=== PATIENT | male | born 1950 | race Hispanic/Latino ===

== ENCOUNTER 2017-05-02 07:04 | Day surgery (SDC) | payer BC, MEDICARE ==
[2017-04-20 14:47] VITALS: BMI 32.0
[2017-05-02] MEDS ORDERED: Propofol 10 mg/ml Inj (20 ML) ONE (07:56)
[2017-05-02] MEDS ORDERED: Sodium Chloride 0.9% 250 ML IV STA (09:00)
[2017-05-02] MEDS ORDERED: Sodium Chloride 0.9% 1,000 ML IV SCH ×3 (09:00→09:15)
[2017-05-02 10:14] VITALS: BP 102/63; PULSE 78; RESP 19; TEMP 98.7; O2SAT 98
== END 2017-05-02 10:50 | disposition home or self-care (01) ==
LOC: ENDO 07:04
PROVIDERS: ATTEND Specialist
DX: K62.1 Rectal polyp (principal); K57.30 Diverticulosis of large intestine without perforation or abscess without bleeding; K64.8 Other hemorrhoids; I50.9 Heart failure, unspecified; I10 Essential (primary) hypertension; M19.90 Unspecified osteoarthritis, unspecified site; I48.91 Unspecified atrial fibrillation; I25.10 Atherosclerotic heart disease of native coronary artery without angina pectoris; Z12.11 Encounter for screening for malignant neoplasm of colon; Z80.0 Family history of malignant neoplasm of digestive organs
CPT/HCPCS: 45380; 88305; J2704; J7040 ×2

== ENCOUNTER 2018-02-07 00:34 | Inpatient (IN) | payer MEDICARE ==
[2018-02-07 00:34] VITALS: BMI 32.0
--- NOTE | 2018-02-07 00:53 | ED PDOC ---
Arrival/HPI - General Chief Complaint: Shortness Of Breath Time Seen by Provider: 02/07/18 00:36 Historian: Patient - History of Present Illness Narrative History of Present Illness (Text): 02/07/18 00:44 67 year old male, whose past medical history includes CHF, Hypertension, DJD, CAD, a-fib s/p cardiac ablation yesterday morning, presents to the emergency department complaining of shortness of breath 1 hour prior to arrival. Patient states he was fine before he went to sleep, but woke up having trouble breathing. He reports he had his 2nd Cardiac ablation for this a-fib yesterday morning. Patient is on Eliquis. The patient denies any fever, chills, chest pain, abdominal pain, nausea, vomiting, diarrhea, urinary symptoms, back pain, neck pain, headache, dizziness, or any other complaints. PMD: Dr. Marta Grayson Gambling Supervisor: Dr. Zarate Time/Duration: Prior to Arrival, 1 hour Symptom Onset: Sudden Symptom Course: Unchanged Activities at Onset: Sleeping Context: Home Past Medical History - Provider Review Nursing Documentation Reviewed: Yes - Infectious Disease Hx of Infectious Diseases: None - Cardiac Hx Cardiac Disorders: Yes Hx Atrial Fibrillation: Yes (ablation 02/06/18) Hx Pacemaker: No - Pulmonary Hx Respiratory Disorders: No - Neurological Hx Paralysis: No - Hematological/Oncological Hx Blood Transfusions: No Hx Blood Transfusion Reaction: No - Musculoskeletal/Rheumatological Hx Musculoskeletal Disorders: Yes - Psychiatric Hx Emotional Abuse: No Hx Physical Abuse: No Hx Substance Use: No - Anesthesia Hx Anesthesia Reactions: No Hx Malignant Hyperthermia: No - Suicidal Assessment Feels Threatened In Home Enviroment: No Family/Social History - Physician Review Nursing Documentation Reviewed: Yes Family/Social History: No Known Family HX Smoking Status: Never Smoked Hx Alcohol Use: Yes (WINE WITH DINNER) Hx Substance Use: No Allergies/Home Meds Allergies/Adverse Reactions: Allergies No Known Allergies Allergy (Verified 04/20/17 14:52) Home Medications: Home Meds Medication Instructions Recorded Confirmed Allopurinol [Zyloprim] 100 mg PO DAILY 04/20/17 02/07/18 Amlodipine-Benazepril 10-20 mg 10 mg PO DAILY 04/20/17 02/07/18 Apixaban [Eliquis] 5 mg PO BID 04/20/17 02/07/18 Aspirin [Aspirin Chewable] 81 mg PO DAILY 04/20/17 02/07/18 Atorvastatin [Lipitor] 40 mg PO DAILY 04/20/17 02/07/18 Finasteride [Proscar] 5 mg PO DAILY 04/20/17 02/07/18 Furosemide [Lasix] 40 mg PO DAILY 04/20/17 02/07/18 Metoprolol Tartrate [Lopressor] 100 mg PO BID 04/20/17 02/07/18 Spironolactone [Aldactone] 25 mg PO DAILY 04/20/17 02/07/18 OMEGA 3 1 gm PO BID 02/07/18 02/07/18 Ruxolitinib Phosphate [Jakafi] 10 mg PO BID 02/07/18 02/07/18 Review of Systems - Physician Review All systems were reviewed & negative as marked: Yes - Review of Systems Constitutional: absent: Fevers, Other (Chills) Respiratory: SOB Cardiovascular: absent: Chest Pain Gastrointestinal: absent: Abdominal Pain, Diarrhea, Nausea, Vomiting Genitourinary Male: absent: Dysuria, Frequency, Hematuria Musculoskeletal: absent: Back Pain, Neck Pain Neurological: absent: Headache, Dizziness Physical Exam Vital Signs Reviewed: Yes Temperature: Afebrile Blood Pressure: Normal Pulse: Regular Respiratory Rate: Normal Appearance: Positive for: Well-Appearing, Non-Toxic, Comfortable Pain Distress: None Mental Status: Positive for: Alert and Oriented X 3 - Systems Exam Head: Present: Atraumatic, Normocephalic Pupils: Present: PERRL Extroacular Muscles: Present: EOMI Conjunctiva: Present: Normal Mouth: Present: Moist Mucous Membranes Neck: Present: Normal Range of Motion Respiratory/Chest: Present: Rales. No: Respiratory Distress, Accessory Muscle Use Cardiovascular: Present: Regular Rate and Rhythm, Normal S1, S2. No: Murmurs Abdomen: No: Tenderness, Distention, Peritoneal Signs Back: Present: Normal Inspection Upper Extremity: Present: Normal Inspection. No: Cyanosis, Edema Lower Extremity: Present: Normal Inspection. No: Edema Neurological: Present: GCS=15, CN II-XII Intact, Speech Normal Skin: Present: Warm, Dry, Normal Color. No: Rashes Psychiatric: Present: Alert, Oriented x 3, Normal Insight, Normal Concentration Medical Decision Making ED Course and Treatment: 02/07/18 00:44 Impression: 67 year old male presents complaining of shortness of breath that began 2 hours prior to arrival. Patient had a cardiac ablation for a-fib yesterday morning. Plan: -- EKG -- Labs -- CXR -- Lasix, Tylenol -- Blood Culture -- Reassess and disposition Prior Visits: Notes and results from previous visits were reviewed. Progress Notes: 02/07/18 0);42 EKG shows NSR at 74 BPM. Interpreted by me 02/07/18 01:32 CXR Impression: As read by me, cardiomegaly with some mild CHF 02/07/18 02:[address] Haynes who is aware and agrees with the plan. Accepts patient into her service. - Lab Interpretations I have reviewed the lab results: Yes - RAD Interpretation Base Engineer: ED Physician - EKG Interpretation Interpreted by ED Physician: Yes Type: 12 lead EKG - Scribe Statement The provider has reviewed the documentation as recorded by the Scribe Luis M Banda Provider Scribe Attestation: All medical record entries made by the Scribe were at my direction and personally dictated by me. I have reviewed the chart and agree that the record accurately reflects my personal performance of the history, physical exam, medical decision making, and the department course for this patient. I have also personally directed, reviewed, and agree with the discharge instructions and disposition. Disposition/Present on Arrival - Present on Arrival Any Indicators Present on Arrival: No History of DVT/PE: No History of Uncontrolled Diabetes: No Urinary Catheter: No History of Decub. Ulcer: No History Surgical Site Infection Following: None - Disposition Have Diagnosis and Disposition been Completed?: Yes Diagnosis: Congestive heart failure (CHF) Disposition: HOSPITALIZED Disposition Time: 02:00 Condition: FAIR
[2018-02-07 01:18] LABS: BASO # 0.29 K/mm3 (0.0-2.0); BASO % 2.1 % (0.0-3.0); EOS # 0.3 (0.0-0.7); GRAN # 11.22 (1.4-6.5); HEMOGLOBIN 9.3 g/dL (14.0-18.0); LYMPH # 1.4 (1.2-3.4); LYMPH % 10.4 % (22.0-35.0); MEAN CELL VOLUME 98.6 fl (80.0-105.0); MEAN CORPUSCULAR HEMOGLOBIN 31.5 pg (25.0-35.0); MONO # 0.5 (0.1-0.6); MONO % 3.5 % (1.0-6.0); RED CELL DISTRIBUTION WIDTH 22.2 % (11.5-14.5)
[2018-02-07 01:26] LABS: ALB/GLOB RATIO 1.4 (1.1-1.8); ALBUMIN 4.4 g/dL (3.0-4.8); CALCIUM 9.3 mg/dL (8.4-10.5)
[2018-02-07 01:35] LABS: INR 1.65
[2018-02-07 01:41] LABS: TROPONIN I 0.64 ng/mL
[2018-02-07 05:42] LABS: RBC 2.95 10^6/uL (3.5-6.1); WHITE BLOOD COUNT 13.7 10^3/uL (4.5-11.0)
[2018-02-07 08:53] LABS: HDL CHOLESTEROL 17 mg/dL (29-60)
[2018-02-07 09:03] LABS: LDL CHOLESTEROL 44 mg/dL (0-129)
--- NOTE | 2018-02-07 09:20 | CARD ---
APPROVED REPORT Date of service: 02/07/2018 EKG Measurement Heart [id number] <Conclusion> Normal sinus rhythm Baseline artifact Probably normal ECG
--- NOTE | 2018-02-07 09:23 | RAD ---
Date of service: 02/07/2018 HISTORY: sob COMPARISON: No prior. FINDINGS: LUNGS: Infiltrate in the right lower lobe. Mild vascular congestion PLEURA: No significant pleural effusion identified, no pneumothorax apparent. CARDIOVASCULAR: No aortic atherosclerotic calcification present. Normal cardiac size. Mild vascular congestion OSSEOUS STRUCTURES: No significant abnormalities. VISUALIZED UPPER ABDOMEN: Normal. OTHER FINDINGS: None. IMPRESSION: Infiltrate in the right lower lobe. Mild vascular congestion
[2018-02-07 11:33] LABS: TROPONIN I 0.45 ng/mL
--- NOTE | 2018-02-07 13:42 | CARD ---
APPROVED REPORT Date of service: 02/07/2018 EXAM: Two-dimensional and M-mode echocardiogram with Doppler and color Doppler. INDICATION Dizziness and Vertigo Chest Pain 2D DIMENSIONS Left Atrium (2D)5.6 (1.6-4.0cm)IVSd1.2 (0.7-1.1cm) LVDd5.1 (3.9-5.9cm)PWd1.4 (0.7-1.1cm) LVDs3.5 (2.5-4.0cm)FS (%) 32.4 % LVEF (%)60.4 (>50%) M-Mode DIMENSIONS Aortic Root4.10 (2.2-3.7cm)Aortic Cusp Exc.1.60 (1.5-2.0cm) Aortic Valve AoV Peak Cuuxqutx205.0cm/sAoV VTI41.3cmAO Peak GR.15mmHg LVOT Peak Wgpzgzim506.0cm/sLVOT VTI24.50cmAO Mean GR.9mmHg Mitral Valve MV E Kyktcdin915.0cm/sMV A Hjqyoxta68.3cm/sE/A ratio2.9 TDI Lateral E' Peak V12.60cm/sMedial E' Peak V9.36cm/sE/Lateral E'11.8 E/Medial E'15.9 Pulmonary Valve PV Peak Osnbxeko16.5cm/sPV Peak Grad.3mmHg Tricuspid Valve TR Peak Pspyvwgl341ru/sRAP REKPGLSP99qkRxGB Peak Gr.75mmHg UQRV16zsFv LEFT VENTRICLE The left ventricle is normal size. There is borderline concentric left ventricular hypertrophy. The left ventricular function is normal.EF-55-60% There is mild hypokinesis in the basal inferior wall. Transmitral Doppler flow pattern is Grade II-pseudonormal filling dynamics. No left ventricle thrombus noted on this study. There is no ventricular septal defect visualized. There is no left ventricular aneurysm. There is no mass noted in the left ventricle. RIGHT VENTRICLE The right ventricle is moderately dilated. There is normal right ventricular wall thickness. Systolic function is moderately reduced. ATRIA The left atrium is moderately dilated. The right atrium is moderately dilated. The atrial septum is aneurysmal, with intermittent PFO from left to right shunt by color flow. AORTIC VALVE The aortic valve is calcified and displays decreased opening. There is trace aortic regurgitation. Aortic sclerosis VS mild . There is no aortic valvular vegetation. MITRAL VALVE The mitral valve is thickened but opens well. Mitral annular calcification is moderate. Mitral regurgitation is moderate to severe. There is no mitral valve stenosis. There is no evidence of mitral valve prolapse. TRICUSPID VALVE The tricuspid valve leaflets are thickened , but open well. There is moderate to severe tricuspid regurgitation.RVSP-85 mmof Hg There is severe pulmonary hypertension. There is no tricuspid valve stenosis. There is no tricuspid valve prolapse or vegetation. PULMONIC VALVE The pulmonary valve is normal in structure. trivial PI. There is no pulmonic valvular stenosis. GREAT VESSELS The aortic root is normal in size. The ascending aorta is normal in size. The pulmonary artery is normal. The IVC is normal in size and collapses >50% with inspiration. PERICARDIAL EFFUSION There is no pleural effusion. Trivial pericardial effusion. <Conclusion> The left ventricle is normal size. There is borderline concentric left ventricular hypertrophy. The left ventricular function is normal.EF-55-60%. Dilated RA/LA/RV. There is trace aortic regurgitation. Aortic sclerosis VS mild . Mitral regurgitation is moderate to severe. There is moderate to severe tricuspid regurgitation.RVSP-85 mmof Hg There is severe pulmonary hypertension. Trivial pericardial effusion. The IVC is normal in size and collapses >50% with inspiration. The atrial septum is aneurysmal, with intermittent PFO from left to right shunt by color flow.
--- NOTE | 2018-02-07 14:19 | HP ---
DATE OF EXAM: 02/07/2018 HISTORY OF PRESENT ILLNESS: The patient is a 67-year-old who came to emergency room because of increasing shortness of breath. The patient states he had ablation procedure done in [place], [place], day before yesterday for his chronic AFib. He was well for yesterday, but woke up with extreme shortness of breath, so he called ambulance and was brought to the emergency room with complaint of feeling very dizzy. He denies any fever or chills. No nausea or vomiting. No diarrhea. PAST MEDICAL HISTORY: Significant for: 1. AFib. 2. Hypertension. 3. Hyperlipidemia. 4. History of BPH. 5. 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 ALLERGIES: HE IS NOT ALLERGIC TO ANY MEDICATION. MEDICATIONS: At home, he is on Spironolactone 25 daily, metoprolol 100 b.i.d., Lasix 40 mg daily, Proscar 5 mg daily, Lipitor 40 mg daily, aspirin 81 daily, Eliquis 5 mg twice a day, and Facundo 10/20 daily, allopurinol 100 mg daily. SOCIAL HISTORY: He lives with his family. Denies smoking or drinking. He used to smoke in the past and quit in 1985. PHYSICAL EXAMINATION GENERAL: He states he feels little better, but still short of breath. VITAL SIGNS: He is afebrile, pulse 74, respirations 22, blood pressure 105/54. LUNGS: Bilateral soft crackle at the lower lung region. HEART: S1, S2 audible. ABDOMEN: Soft, nontender. No rebound, no guarding. NEUROLOGICAL: The patient is awake, alert, oriented, communicative. Moves all extremities. EXTREMITIES: Bilateral leg no edema. LABORATORY DATA: WBC 13.7, hemoglobin 9.3, hematocrit 29.1, platelets of 180. Chemistry; sodium 136, potassium 4.9, chloride 104, CO2 of 23, BUN 40, creatinine 2.1, blood sugar of 102. Troponin initially was 0.64, followup is 0.45. Triglycerides 255, LDL 1330. BNP was 949. ASSESSMENT: 1. Congestive heart failure exacerbation. 2. Status post ablation procedure for atrial fibrillation. 3. Hypertension. 4. Benign prostatic hyperplasia. 5. Coronary artery disease. PLAN: We will continue to diurese the patient. We will followup his electrolyte and followup his troponin. We will watch him for another 24 hours, and if he continued to improve, we will discharge. Ina Haynes MD
[2018-02-07 16:37] LABS: TROPONIN I 0.4 ng/mL
[2018-02-07] MEDS: Omega-3-Acid Ethyl Esters 1 GM Cap PO SCH (17:53)
[2018-02-07] MEDS ORDERED: JAKAFI 10 MG PO SCH (18:00)
--- NOTE | 2018-02-07 18:30 | CON ---
DATE: 02/07/2018 SEX OF THE PATIENT: Male. AGE OF THE PATIENT: 67. TYPE OF DICTATION: Cardiac evaluation admitted with shortness of breath, history of recently radiofrequency ablation for atrial fibrillation done on Sunday. 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 The patient reverted back to AFib recently on Sunday. The patient had radiofrequency ablation done by at [facility] Yesterday felt little bit congested, came to the emergency room for evaluation. The patient has a baseline renal insufficiency and anemia and leukocytosis secondary to myelofibrosis, history of coronary artery disease, status post stent 2 years ago at [facility] by possibly Dr. Avendano. The patient is being followed by Dr. Florentin Tellez, the bridge/structure inspection team leader. The patient denies any chest pain, shortness of breath, or any palpitation. PAST MEDICAL HISTORY: Significant for history of atrial fibrillation and anticoagulation. History of coronary artery status post 2 stent 2 years ago at [facility] and then Plavix stopped after 11 month because the patient required radiofrequency ablation and then the patient is on Eliquis and baby aspirin, but started bleeding so I continued on Eliquis also. Recently, the patient had more recurrence of atrial fibrillation, so the patient had radiofrequency ablation done last Sunday [place] and [facility] Yesterday came in because of the shortness of breath. Past history also significant for myelofibrosis being followed by Dr. Kurtis Reynoso, brick paver. Also the patient has a history of [place] cell carcinoma in the left leg status post excision now with recurrence being followed at [facility]. Recent cardiac workup, the patient had echo done [address] 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 Tellez and patient. PAST SURGICAL HISTORY: Significant for removal of [place] cell carcinoma from the left calf and history of recurrence, history of coronary stent [address] Avendano, history of radiofrequency ablation twice 1 year ago and most recently on Sunday. CURRENT MEDICATION: The patient is taking spironolactone 25 mg, metoprolol titrate 100 mg daily, Lasix 40 mg daily, Proscar 5 mg daily, atorvastatin 40 mg daily, aspirin 81 mg daily, Eliquis 5 mg p.o. b.i.d., amlodipine and benazepril 10/20 mg once a day, allopurinol at 100 mg daily. ALLERGIES: NO KNOWN DRUG ALLERGIES. SOCIAL HISTORY: The patient denies any history tobacco abuse, use to smoke, quit 15 to 20 years ago. Denies any history of alcohol, but drinks socially. 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 REVIEW OF SYSTEMS: As per HPI. PHYSICAL EXAMINATION: VITAL SIGNS: Height of the patient is 5 feet 9 inch, weight 225 pounds, body mass index 33.2 kg/m2. Rest of the vitals; temperature afebrile, heart rate 78, blood pressure 131/76. HEENT: PERRLA. Extraocular muscles intact. NECK: Supple. No carotid bruit or thyromegaly. CHEST: Clear to auscultation. HEART: S1 and S2 regular. ABDOMEN: Soft. EXTREMITIES: Clubbing and cyanosis negative. LABORATORY DATA: Blood workup; WBC 13.7, hemoglobin 9.3, hematocrit 29.1, and platelet count 180. Chemistry shows sodium 132, potassium 4.9, chloride 104, carbon dioxide 14, anion gap of 40, BUN 40, and creatinine 2.1. Troponin 0.64. EKG shows normal sign. Heart rate 74. No acute STT changes noted. IMPRESSION: This is a 67-year-old male with past medical history significant for myelofibrosis, also the patient has a elevated leukocytosis and being followed by the Dr. Kurtis Reynoso, brick paver. History of [place] cell carcinoma, status post excision and removal of the left having recurrence. History of coronary artery disease, status post 2 stent in the coronary. History of renal insufficiency. History of rate related cardiomyopathy. History of radiofrequency ablation twice 1 year most recently Sunday admitted with mild shortness of breath, borderline elevated BNP and elevated troponin of 0.64, most likely secondary to recently radiofrequency ablation and troponin as well as patient has a renal insufficiency. The patient denies any chest pain, shortness of breath, or any palpitation. RECOMMENDATION: We will order serial CPK and if troponin trends down and the patient remain free possibly discharge home today or tomorrow. Discussed with Dr. Tellez upon discharge. The patient is going to be followed with Dr. Tellez on day after the [place]. Chest x-ray looks like congestive failure. We will give a dose of Lasix and at 3 p.m. Repeat another dose of Lasix and get echo LV function. Monitor closely the trend of the troponin, we will order stat troponin now and a stat troponin at 2 p.m. and 10 p.m. Further recommendation will depend on the hospital course. We will follow with you. We will repeat chest x-ray, PA lateral, rule out any infiltrate in the right lower lobe. Thank you Dr. Haynes for providing us the opportunity in taking care of the patient, Stanley Gutierrez. We will also get lipid profile and TSH. Valery Johnston MD
[2018-02-07 20:35] LABS: TROPONIN I 0.36 ng/mL
[2018-02-08 00:10] VITALS: RESP 20
[2018-02-08 06:07] VITALS: O2SAT 96
[2018-02-08 08:05] LABS: FREE T4 0.93 ng/dL (0.78-2.19)
[2018-02-08 08:08] LABS: ALB/GLOB RATIO 1.2 (1.1-1.8); ALBUMIN 3.6 g/dL (3.0-4.8); CALCIUM 8.6 mg/dL (8.4-10.5)
--- NOTE | 2018-02-08 09:07 | RAD ---
Date of service: 02/07/2018 HISTORY: F/U pneumonia and compare COMPARISON: Earlier same day TECHNIQUE: Chest PA and lateral FINDINGS: LUNGS: The right-sided infiltrate has resolved. This was most likely due to CHF. There is mild vascular congestion remaining. PLEURA: No significant pleural effusion identified. No pneumothorax apparent. CARDIOVASCULAR: No aortic atherosclerotic calcification present. Mild cardiomegaly no pulmonary vascular congestion. OSSEOUS STRUCTURES: No significant abnormalities. VISUALIZED UPPER ABDOMEN: Normal. OTHER FINDINGS: None. IMPRESSION: No active disease.
[2018-02-08] MEDS: Omega-3-Acid Ethyl Esters 1 GM Cap PO SCH (09:38)
--- NOTE | 2018-02-08 12:55 | PN ---
DATE: 02/08/2018 REASON FOR CONSULTATION AND FOLLOWUP: Cardiac evaluation, shortness of breath, history of recent radiofrequency ablation, atrial fibrillation, on this Sunday at [place], admitted with shortness of breath. SUBJECTIVE: The patient denies any chest pain, shortness of breath, or any palpitations. Feels a lot better. OBJECTIVE: GENERAL: Not in apparent distress. VITAL SIGNS: Temperature afebrile, heart rate 74, and blood pressure 109/62. HEENT: PERRLA. Extraocular muscles intact. NECK: Supple. No carotid bruit. No thyromegaly. CHEST: Clear to auscultation. HEART: S1 and S2 regular. ABDOMEN: Soft. EXTREMITIES: Clubbing and cyanosis negative. LABORATORY DATA: Blood workup: WBC 13.6, hemoglobin 9.8, hematocrit 29.1, and platelet count 180. Chemistry shows sodium 136, potassium 4.2, chloride 106, carbon dioxide 20, anion gap of 11, BUN 41, and creatinine 1.8. Troponin 0.06. 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 IMPRESSION: A 67-year-old male with past medical history significant for coronary artery disease, status post percutaneous transluminal coronary angioplasty two years ago with Dr. Hernandez and history of recent radiofrequency ablation done for atrial fibrillation. This is the second radiofrequency, first one a year ago, reverted back done by Dr. Garay, Dr. Tellez's partner, this Sunday, admitted with some shortness of breath, trace pericardial effusion, and troponin borderline secondary to recent history of intervention and radiofrequency ablation, history of some renal insufficiency, pulmonary hypertension, patent foramen ovale, xilmbvpz-ae-mhtygv mitral regurgitation, ayanbldp-vo-ubctbm tricuspid regurgitation, history of rate-related cardiomyopathy, which significantly improved. RECOMMENDATIONS: Continue spironolactone. Continue Eliquis. Continue gentle diuretics. Yesterday was given extra dose of Lasix at 3 p.m. Monitor electrolytes. Possible discharge home today. Follow up with Dr. Tellez. Discussed with Dr. Tellez. We will discuss with the patient upon discharge. The patient will be seeing Dr. Tellez, a day after [place]. Valery Johnston MD
[2018-02-08 13:05] VITALS: BP 126/65; PULSE 77; TEMP 98.2
--- NOTE | 2018-02-08 13:34 | DS ---
HISTORY OF PRESENT ILLNESS: The patient is a 67-year-old seen and examined. The patient has history of chronic AFib, had ablation procedure done in [place], [place] 3 days ago. The night he was admitted he started to have shortness of breath, so he called ambulance and was brought to emergency room on night of 02/07, was diuresed and placed on observation. The patient was seen and examined this morning, doing very well. PHYSICAL EXAMINATION: GENERAL: He is awake, alert, oriented, and communicative. VITAL SIGNS: Afebrile, pulse 74, respirations 20, blood pressure 111/62. LUNGS: Bilateral fair air flow. No rhonchi or crackle. HEART: S1, S2 audible. ABDOMEN: Soft and nontender. No rebound. No guarding. NEUROLOGIC: The patient is awake, alert, oriented, and communicative. LABORATORY DATA: Sodium 136, potassium 4.2, chloride 106, CO2 23, BUN 41, creatinine 1.8. Blood sugar of 99. Total bili 2.1. His troponin is trending down. ASSESSMENT: 1. Chronic atrial fibrillation, status post . 2. Hypertension. 3. Hyperlipidemia. 4. Pulmonary hypertension. 5. Tricuspid regurgitation. 6. Benign prosthetic hypertrophy. PLAN: The patient is being discharge home today. He will follow with the team. He will with his religious ritual slaughterer. The patient does have history myelofibrosis. For that, he is on Jakafi. The patient will resume his medication including Aldactone, Lopressor, Lasix, Proscar, Lipitor, aspirin, Eliquis, Facundo, continue Lasix, continue Lipitor. The patient will resume his medication. We will follow up with PMD and religious ritual slaughterer. Ina Haynes MD
--- NOTE | 2018-02-08 15:06 | PQF ---
PROVIDER RESPONSE TEXT: Acute on Chronic secondary to diastolic dysfunction and also Right heart failure. REVIEWER QUERY TEXT: CHF Acuity and Type Congestive Heart Failure is documented in the Medical Record. Please document the type and acuity (in cludes probable or suspected) Such as: Type: -- Systolic -- Diastolic -- Combined -- Other, please specify Acuity: -- Acute -- Chronic -- Acute on chronic -- Other, please specify Also please document the underlying cause of the CHF (includes probable or suspected) The patient's Clinical Indicators include: elevated BNP and elevated troponin of 0.64, most likely secondary to recently radiofrequency ablatio n Query created by: Carol Nieves on 02/08/2018 11:48 AM Electronically signed by: Valery Johnston 02/08/2018 3:04 PM
== END 2018-02-08 14:00 | disposition home or self-care (01) | DRG 292 ==
LOC: ED 00:34 → ERH 02:08 → 2RSO 03:50
PROVIDERS: ADMIT Internal Medicine; ATTEND Internal Medicine
DX: I11.0 Hypertensive heart disease with heart failure (principal); D75.81 Myelofibrosis; Q21.1 Atrial septal defect; I50.33 Acute on chronic diastolic (congestive) heart failure; I50.810 Right heart failure, unspecified; I42.9 Cardiomyopathy, unspecified; I25.10 Atherosclerotic heart disease of native coronary artery without angina pectoris; N40.0 Benign prostatic hyperplasia without lower urinary tract symptoms; I48.0 Paroxysmal atrial fibrillation; I27.20 Pulmonary hypertension, unspecified; I08.1 Rheumatic disorders of both mitral and tricuspid valves; M19.90 Unspecified osteoarthritis, unspecified site; D64.9 Anemia, unspecified; E78.5 Hyperlipidemia, unspecified; I48.2 Chronic atrial fibrillation; Z79.01 Long term (current) use of anticoagulants; Z79.899 Other long term (current) drug therapy; Z95.5 Presence of coronary angioplasty implant and graft; Z85.821 Personal history of Merkel cell carcinoma; Z87.891 Personal history of nicotine dependence; Z79.82 Long term (current) use of aspirin